=== PATIENT | female | born 1985 | race Caucasian/White ===

== ENCOUNTER 2019-01-29 00:12 | Day surgery (SDC) | payer BC ==
[~2019-01-29] VITALS: Ht 157.5 cm; Wt 87.5 kg
[~2019-01-29 00:12] MED LIST: FAMO-129 PO; MULT1CAP59 PO
[2019-01-29] MEDS ORDERED: fentaNYL CITR 100 MCG/2 ML AMP ONE ×2 (11:04→13:08)
[2019-01-29] MEDS ORDERED: LIDOCAINE MPF 1% 5 ML VIAL ONE ×2 (11:05→13:22)
[2019-01-29] MEDS ORDERED: ONDANSETRON 4 MG/2 ML VIAL ONE ×2 (11:05→13:22)
[2019-01-29] MEDS ORDERED: KETOROLAC 30 MG/ML VIAL ONE (11:05)
[2019-01-29] MEDS ORDERED: PROPOFOL EMUL(*) 10MG/ML 20 ML 0 ML ONE (11:05)
[2019-01-29] MEDS ORDERED: DEXAMETHASONE SOD PHOS 10MG/ML ONE ×2 (11:05→13:22)
[2019-01-29] MEDS ORDERED: KETAMINE HCL 200 MG/20 ML MDV ONE (11:06)
[2019-01-29] MEDS ORDERED: HALOPERIDOL LACT 5 MG/ML VIAL IM ONE (11:19)
[2019-01-29] MEDS ORDERED: SCOPOLAMINE 1.5 MG PATCH TD ONE (11:32)
[2019-01-29] MEDS ORDERED: NORMOSOL R SOLN(*) 1000 ML BAG 1,000 ML IV PRN (11:40)
[2019-01-29] MEDS ORDERED: FAMOTIDINE 20 MG TAB PO ONE (11:40)
[2019-01-29] MEDS ORDERED: LIDOCAINE/SOD BICARB 8.4% SYR ID ONE (11:40)
[2019-01-29] MEDS ORDERED: MIDAZOLAM 2 MG/2 ML VIAL IVP PRN (11:40)
[2019-01-29 11:43] VITALS: BP 99/64
[2019-01-29] MEDS ORDERED: ROCURONIUM BR 10 MG/ML ONE (12:29)
[2019-01-29] MEDS ORDERED: PROPOFOL EMUL(*) 10MG/ML 20 ML 60 ML ONE (12:30)
[2019-01-29] MEDS ORDERED: LIDOCAINE 2% JELLY 5 ML TUBE ONE (12:52)
[2019-01-29] MEDS ORDERED: ROCURONIUM BR 10 MG/ML 5 ML SY 5 ML ONE (12:59)
[2019-01-29] MEDS ORDERED: PROPOFOL EMUL(*) 10MG/ML 20 ML 20 ML ONE (13:22)
[2019-01-29] MEDS ORDERED: LR(*) 1000 ML BAG 1,000 ML IV ONE (13:49)
[2019-01-29] MEDS ORDERED: APAP/HYDROCODONE 325/5 TAB PO PRN (13:50)
--- NOTE | 2019-01-29 13:51 | Post Operative Note ---
Operative Note - [employer]EL[employer] Operative Day Date: Jan 29, 2019 Time: 13:50 Physicians Surgeon: Sari Anesthesia: Gen LMA Diagnosis Pre-Op Diagnosis: Menorrhagia Metrorrhagia Post-Op Diagnosis: same Procedure Findings: uterus cavity 5.5 cm x 4.7 cm ablation 86 sec deficit 30 cc Procedure(s): Hysteroscopy Novasure ablation Specimen Removed:(Maybe N/A): [id number] Complications: none Fluids Fluids: 1000 ml Estimated Blood Loss: minimal Dictated Date OP Note Dictated: Jan 29, 2019 Time OP Note Dictated: 13:51 Copies to: LIU QUINTEROS MD ; LIU QUINTEROS MD Jan 29, 2019 13:51
[2019-01-29] MEDS ORDERED: LOR5/325 PO (13:52)
--- NOTE | 2019-01-29 13:55 | Short(Outpt) Discharge Summary ---
Discharge Summary Reason for Hosp/Final Diag: (1) Menorrhagia Hospital Course & Plan: s/p Novasure endometrial ablation (2) Metrorrhagia Departure Discharge to: Home, Self Care Discharge Instructions Home Meds Active Scripts Hydrocodone Bit/Acetaminophen (HYDROCODON-ACETAMINOPHEN 5-325) 1 Each Tablet, 1- 2 EACH PO Q6H PRN for PAIN, #10 TAB 0 Refills Prov:LIU QUINTEROS MD 01/29/19 Reported Medications Multivitamin (MULTIVITAMINS) 1 Each Capsule, 1 EACH PO DAILY, CAPSULE 01/24/19 Famotidine (PEPCID AC) 10 Mg Tablet, 20 MG PO QHS PRN for GAS/HEARTBURN, #5 TAB 01/24/19 Follow up Referrals: [employer]PERATIONS ENGINEER IN CHARGE - In Two Weeks @ [facility] with LIU QUINTEROS MD Diet: Regular Activity: As Tolerated Special Instructions: pelvic rest x 2 weeks Copies to: LIU QUINTEROS MD ; Problem Qualifiers (1) Menorrhagia: Menorrahagia type: with irregular cycle Qualified Codes: N92.1 - Excessive and frequent menstruation with irregular cycle LIU QUINTEROS MD Jan 29, 2019 13:55
--- NOTE | 2019-01-29 14:05 | OPERATIVE REPORT 1 ---
EVENT DATE: January 29, 2019 SURGEON: Diomedse Guo MD ANESTHESIOLOGIST: Mejia Ferrera MD ANESTHESIA: General, LMA. PREOPERATIVE DIAGNOSIS 1. Menorrhagia. 2. Excessive or frequent menstruation with irregular cycle. POSTOPERATIVE DIAGNOSIS 1. Menorrhagia. 2. Excessive or frequent menstruation with irregular cycle. PROCEDURE PERFORMED 1. Diagnostic hysteroscopy. 2. Hysteroscopic NovaSure endometrial ablation. ESTIMATED BLOOD LOSS Minimal. FLUIDS 1 liter IV Crystalloid. FINDINGS Normal appearing uterine cavity with no visible cavity deficits/endometrium throughout the endometrial cavity. The uterine sound depth of 9 cm, cervical length 3.5 cm, cavity length 5.5 cm, width of 4.7 cm, power setting of 142 putnam, total ablative time 86 seconds. Fluid deficit 30 cc. DESCRIPTION OF PROCEDURE The patient was brought to the operating room with a working IV and placed in the dorsal supine position on the operating table and placed under general LMA anesthesia. She was then moved to the dorsal lithotomy position, prepped and draped in the usual sterile fashion. A weighted speculum was placed in the vagina. The cervix was grasped on the anterior lip with a single-toothed tenaculum. The uterus was sounded to a depth of 9 cm. The cervix was carefully dilated to a size 5 Hegar dilator. The diagnostic hysteroscope was assembled using normal saline as insufflation, passed through the cervix into the uterus and the cavity was inspected under hysteroscopy with the above findings noted. The tip of the hysteroscope was approximated at the internal os and then withdrawn measuring the remaining distance of 3.5 cm making a cavity length of 5.5 cm. The cervix was then carefully dilated to a size 8 Hegar dilator and the NovaSure device was assembled. It was locked into a length of 5.5 cm, passed through the cervix into the uterus and the array was fully extended and locked in place. It was rocked about in order to seat the tips of the NovaSure device into the corners of the uterus. A width of 4.7 cm was documented. These dimensions were programed into the NovaSure controller making a power setting of 142 putnam. The plunger was approximated against the cervix and a cavity assessment was performed and passed. Therefore, the device was enabled with a total ablative time 86 seconds before automatic shut off. The NovaSure device was then removed and diagnostic hysteroscopy was again performed confirming excellent uterine burn throughout the endometrium and no visible deficits and no visible complications. Therefore, the scope was removed. All instruments were removed from the vagina. She was returned to the dorsal supine position, awakened from general anesthesia in stable condition and taken to recovery. Sponge, lap, needle and instruments counts were all correct x3. MTDD
[2019-01-29 14:43] VITALS: BP 97/69
[2019-01-29 15:19] VITALS: BP 108/47
== END 2019-01-29 14:40 | disposition home or self-care (01) ==
LOC: OR 00:12
PROVIDERS: ATTEND Obstetrics & Gynecology
DX: N92.0 Excessive and frequent menstruation with regular cycle (principal); N92.1 Excessive and frequent menstruation with irregular cycle
CPT/HCPCS: 58563; 84703; J1100; J1885; J2001; J2405; J2704; J3010; J3490; J1630